=== PATIENT | female | born 1955 ===

== ENCOUNTER 2016-10-23 09:34 | Observation (INO) | payer BC, MEDICARE ==
[2016-10-23 09:35] VITALS: BMI 23.2
[2016-10-23] MEDS ORDERED: Sodium Chloride 0.9% 1,000 ML IV ONE (11:14)
[2016-10-23 11:57] LABS: EOS # 0.1 K/uL (0.0-0.7); EOS % 3.9 % (0.0-4.0); LYMPH # 0.9 K/uL (1.0-4.3); MONO # 0.3 K/uL (0.0-0.8)
[2016-10-23 12:03] LABS: BASO % 0.8 % (0.0-2.0); HEMATOCRIT 35.4 % (34.0-47.0); LYMPH % 27.7 % (20.0-40.0); MEAN CORPUSCULAR HEMOGLOBIN 26.4 pg (27.0-31.0); MEAN CORPUSCULAR HGB CONC 32.8 g/dL (33.0-37.0); MEAN PLATELET VOLUME 9.9 fL (7.2-11.7); MONO % 8.4 % (0.0-10.0); NRBC % 0.2 % (0.0-2.0); RED CELL DISTRIBUTION WIDTH 15.7 % (11.5-14.5)
[2016-10-23 12:05] LABS: MEAN CELL VOLUME 80.5 fL (81.0-99.0); WHITE BLOOD COUNT 3.2 K/uL (4.8-10.8)
--- NOTE | 2016-10-23 12:05 | C.PDOC ---
History Of Present Illness 61 year old female with a history of hernia, DM, endometrial CA presents to the ED with complaints of suprapubic radiating vaginal for the past 6 months. Patient was sent in by Dr. Bella for a hernia repair and notes she has had multiple hernia repairs in the past. Denies fever, chest pain, dysuria, nausea, vomiting, diarrhea, abdominal pain, vaginal discharge, or any other complaints at this time. Time Seen by Provider: 10/23/16 11:14 Chief Complaint (Nursing): Female Genitourinary History Per: Patient History/Exam Limitations: no limitations Onset/Duration Of Symptoms: Days Current Symptoms Are (Timing): Still Present Severity: Mild Past Medical History Reviewed: Historical Data, Nursing Documentation, Vital Signs Vital Signs: Last Vital Signs Temp 97.6 F 10/23/16 17:19 Pulse 58 L 10/23/16 17:19 Resp 18 10/23/16 17:19 BP 145/81 10/23/16 17:19 Pulse Ox 100 10/23/16 18:00 - Medical History PMH: Depression, Diabetes, Hepatitis, HTN Other PMH: cirrhosis Surgical History: Endoscopy (banding esophageal varices), Hernia Repair (2 umbilical hernias, 1 inguinal hernia), Other Surgeries: endometrial CA - [facility] Procedures DESTRUCT PERITONEAL TISS (09/28/14) OTH LYSIS-PERITONEAL ADHES (09/28/14) OTHER AND OPEN REPAIR OF DIRECT INGUINAL HERNIA (09/28/14) OTHER OPEN INCISIONAL HERNIA REPAIR WITH GRAFT OR PROSTHESIS (09/28/14) Family History: States: Unknown Family Hx - Social History Hx Alcohol Use: No Hx Substance Use: No - Immunization History Hx Tetanus Toxoid Vaccination: No Hx Influenza Vaccination: No Hx Pneumococcal Vaccination: No Review Of Systems Except As Marked, All Systems Reviewed And Found Negative. Constitutional: Negative for: Fever, Chills Cardiovascular: Negative for: Chest Pain Respiratory: Negative for: Shortness of Breath Gastrointestinal: Negative for: Nausea, Vomiting, Abdominal Pain Genitourinary: Positive for: Pelvic Pain. Negative for: Dysuria, Vaginal Discharge Physical Exam - Physical Exam Appears: Non-toxic, No Acute Distress Skin: Normal Color, Warm, Dry Head: Atraumatic, Normacephalic Eye(s): bilateral: Normal Inspection Nose: Normal Oral Mucosa: Moist Chest: Symmetrical, No Deformity Cardiovascular: Rhythm Regular Respiratory: Normal Breath Sounds, No Accessory Muscle Use, No Rales, No Rhonchi Gastrointestinal/Abdominal: Soft, No Distention, No Guarding, Hernia (+Tender suprapubic hernia), Other (+Perpendicular healed scar from the umbilicus to the mons pubis.) Extremity: Normal ROM Neurological/Psych: Oriented x3, Normal Speech, Normal Cognition ED Course And Treatment - Laboratory Results Result Diagrams: 10/23/16 11:38 10/23/16 11:38 ECG: Interpreted By Me, Viewed By Me ECG Rhythm: Sinus Bradycardia Rate From EC (BPM) O2 Sat by Pulse Oximetry: 100 (on room air) Pulse Ox Interpretation: Normal - CT Scan/US CT ABD & Pelvis w/contrast Other Rad Studies (CT/US): Read By Radiologist, Radiology Report Reviewed CT/US Interpretation: Creator : Kathie Maddox MD. Dictator : Kathie Maddox MD. Card Room Manager : Transition Advisor : Kathie Maddox MD. Approver2 : Report Date : 10/23/2016 16:46:13. My Comment : . PROCEDURE: CT Abdomen and Pelvis with oral and IV contrast. HISTORY: abd pain. COMPARISON: None available. TECHNIQUE: Contiguous axial images of the abdomen and pelvis. Oral and IV contrast was administered. Coronal and Sagittal reformats generated. This CT exam was performed using 1 or more of the falling dose reduction techniques: Automated exposure control, adjustment of the MAA and /or kV according to patient size, and/or use of iterative reconstruction technique. Contrast dose: 100 mL Omnipaque 240. Radiation dose: Total exam DLP = 350.23 mGy-cm. FINDINGS: LOWER THORAX: No visible consolidation, pleural effusion, or pneumothorax. Right pleural plaque. Small hiatal hernia. Evidence of gastroesophageal reflux. LIVER: Nodular hepatic contour. Hypo dense appearance of the liver compatible with hepatic steatosis. GALLBLADDER AND BILE DUCTS: Gallstones. PANCREAS: Unremarkable. SPLEEN: Splenomegaly. Heterogeneous splenic parenchyma with 1.1 cm hypodense lesion. ADRENALS: Unremarkable. KIDNEYS AND URETERS: The kidneys enhance symmetrically. No hydronephrosis or obstructing renal calculus. BLADDER: The urinary bladder appears unremarkable. REPRODUCTIVE: Uterus is absent, presumably due to hysterectomy. APPENDIX: The appendix appears within normal limits of caliber. BOWEL: The stomach is nondistended. The bowel loops appear within normal limits of caliber without evidence of intestinal obstruction. PERITONEUM: Small pelvic ascites. No definite free air. LYMPH NODES: No bulky lymphadenopathy identified. VASCULATURE: No aortic aneurysm. BONES: Degenerative changes. Scoliosis. OTHER FINDINGS: Discrete fluid collections measuring approximately 4.2 x 5.7 cm and 4.4 x 5.4 cm identified within the anterior pelvis at approximately the level of the pubic symphysis extending inferiorly. This finding appears anterior to the rectus ; correlate with surgical history. . IMPRESSION: Discrete fluid collections measuring approximately 4.2 x 5.7 cm and 4.4 x 5.4 cm identified within the anterior pelvis at approximately the level of the pubic symphysis extending inferiorly. This finding appears anterior to the rectus ; correlate for surgical history. Correlate clinically. Cannot exclude abscess. Cirrhotic appearing liver with nodular hepatic contour and heterogeneous hepatic parenchyma. Small perihepatic ascites. Splenomegaly. Heterogeneous splenic parenchyma with 1.1 cm hypodense lesion. Cholelithiasis. Small pelvic free fluid. 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 Additional findings as above. Progress Note: CT ABD & Pelvis w/contrast, EKG, Blood work, and Urinalysis ordered and reviewed. Patient treated with IV fluids. Patient was seen by Dr. Bella in the ED. Case discussed with Dr. Yen who agreed with plan and admission. Disposition - Disposition Disposition: HOSPITALIZED Disposition Time: 17:00 Condition: STABLE - Clinical Impression Clinical Impression: UTI (urinary tract infection), Inguinal hernia - PA / DIRECTOR BEHAVIORAL HEALTH / Resident Statement MD/DO has reviewed & agrees with the documentation as recorded. - Scribe Statement The provider has reviewed the documentation as recorded by the Scribe Keysha Babin. All medical record entries made by the Sangibe were at my direction and personally dictated by me. I have reviewed the chart and agree that the record accurately reflects my personal performance of the history, physical exam, medical decision making, and the department course for this patient. I have also personally directed, reviewed, and agree with the discharge instructions and disposition.
[2016-10-23] MEDS ORDERED: Iohexol 240 (50 ml) PO STA (12:06)
[2016-10-23 12:10] LABS: CHLORIDE 94 mmol/L (98-107); SODIUM 135 mmol/L (132-148)
[2016-10-23 12:12] LABS: GFR AFRICAN-AMERICAN > 60
[2016-10-23 12:13] LABS: ALB/GLOB RATIO 1.2 (1.0-2.1); ALKALINE PHOSPHATASE 101 U/L (38-126); ALT/SGPT 17 U/L (9-52); AST/SGOT 30 U/L (14-36); BILIRUBIN,TOTAL 2.1 mg/dL (0.2-1.3); BLOOD UREA NITROGEN 8 mg/dL (7-17); CALCIUM 8.8 mg/dl (8.6-10.4); CARBON DIOXIDE 28 mmol/L (22-30); GLUCOSE,RANDOM 246 mg/dL (65-105); TOTAL PROTEIN 7.1 g/dL (6.3-8.3)
[2016-10-23] MEDS ORDERED: Iohexol 240 (50 ml) ONE (12:14)
[2016-10-23 12:51] LABS: RBC URINE 4 /hpf (0-3); URINE BACTERIA RARE (<OCC); URINE BILIRUBIN NEGATIVE (NEGATIVE); URINE BLOOD 1+ (NEGATIVE); URINE COLOR Yellow (YELLOW); URINE GLUCOSE (UA) NORMAL (Normal); URINE KETONE NEGATIVE (NEGATIVE); URINE LEUKOCYTE ESTERASE 3+ Leu/uL (Negative); URINE PROTEIN NEGATIVE (NEGATIVE); URINE UROBILINOGEN NORMAL mg/dL (0.2-1.0); WBC URINE 26 /hpf (0-5)
[2016-10-23 14:29] LABS: INR 1.1
--- NOTE | 2016-10-23 14:57 | CP.PCM.HP ---
History of Present Illness - History of Present Illness History of Present Illness: This is a 61 y/o F w/ PMHx of umbilical hernia, inguinal hernia, type 2 DM, HTN , cirrhosis, endometrial CA, and Hep C, s/p Harvoni therapy with negative titers , that was sent to the ED to be admitted for surgical repair by Dr Bella. Patient complains of pain 4-5/10 in the suprapubic and vaginal areas that is exacerbated with increased intra-abdominal pressure. Patient reports hernia has been present for 6 months. Patient reports this is her second inguinal hernia with the first being surgically repaired in 2014. She states that this hernia appears larger than the previous one. Pt denies any fevers, chills, chest pain, palpitations, nausea, vomiting, diarrhea or constipation. PMHx - 2 umbilical hernias, 1 inguinal hernia, type 2 DM, HTN, cirrhosis, Hep C (currently negative titers), endometrial CA PSHx - 2 umbilical hernias, 1 inguinal hernia, endometrial CA, 3x C-sections Meds - Metformin 500 BID, Propanolol 10mg TID, Lasix 40 mg QD Social - Denies any drug, alcohol, tobacco use Family - Father and Mother type 2 DM SH - Denies tobacco, Etoh or drug use Present on Admission - Present on Admission Any Indicators Present on Admission: No Review of Systems - Constitutional Constitutional: absent: Chills, Fever - EENT Eyes: absent: Blurred Vision, Pain - Cardiovascular Cardiovascular: absent: Chest Pain, Palpitations - Respiratory Respiratory: absent: Cough, Dyspnea - Gastrointestinal Gastrointestinal: absent: Constipation, Diarrhea, Nausea, Vomiting - Genitourinary Genitourinary: absent: Difficulty Urinating - Musculoskeletal Musculoskeletal: absent: Muscle Weakness, Stiffness - Integumentary Integumentary: absent: Pruritus, Rash - Neurological Neurological: absent: Numbness, Tingling Past Patient History - Past Medical History & Family History Past Medical History?: Yes - Past Social History Smoking Status: Never Smoked - CARDIAC Hx Hypertension: Yes - PULMONARY Hx Respiratory Disorders: No - NEUROLOGICAL Hx Neurological Disorder: No - HEENT Hx HEENT Problems: Yes Other/Comment: Difficulty hearing - RENAL Hx Chronic Kidney Disease: No - ENDOCRINE/METABOLIC Hx Diabetes Mellitus Type 2: Yes - HEMATOLOGICAL/ONCOLOGICAL Hx Blood Disorders: Yes Hx Blood Transfusions: Yes Hx Blood Transfusion Reaction: No Hx Cancer: Yes (Endometrial cancer 2006) Hx Hepatitis C: Yes (2004) - INTEGUMENTARY Hx Dermatological Problems: No - MUSCULOSKELETAL/RHEUMATOLOGICAL Hx Musculoskeletal Disorders: Yes Hx Back Pain: Yes Hx Falls: Yes (4 times in the last year) - GASTROINTESTINAL Hx Gastrointestinal Disorders: Yes (esophageal varices banding) Hx Esophageal Varices: Yes Other/Comment: liver disease due to hep C - GENITOURINARY/GYNECOLOGICAL Hx Genitourinary Disorders: Yes (hx endometrial cancer) Other/Comment: states urine smells bad - PSYCHIATRIC Hx Depression: Yes Hx Substance Use: No - SURGICAL HISTORY Hx Surgeries: Yes Hx Hysterectomy: Yes (2006) - ANESTHESIA Hx Anesthesia: Yes Hx Anesthesia Reactions: No Meds Allergies/Adverse Reactions: Allergies Allergy/AdvReac Type Severity Reaction Status Date / Time No Known Allergies Allergy Verified 10/23/16 10:06 Physical Exam - Constitutional Appears: Non-toxic, No Acute Distress - Head Exam Head Exam: ATRAUMATIC, NORMOCEPHALIC - ENT Exam ENT Exam: Mucous Membranes Moist - Respiratory Exam Respiratory Exam: Clear to Auscultation Bilateral, NORMAL BREATHING PATTERN - Cardiovascular Exam Cardiovascular Exam: +S1, +S2 - GI/Abdominal Exam GI & Abdominal Exam: Hernia, Normal Bowel Sounds, Soft, Tenderness (Over hernia) . absent: Distended, Hyperactive Bowel Sounds Additional comments: Suprapubic hernia with erythematous overlying skin changes. Tender to palpation , non-reducible (pt unable to tolerate much pressure due to pain) - Extremities Exam Extremities exam: Positive for: normal inspection - Back Exam Back exam: NORMAL INSPECTION - Neurological Exam Neurological exam: Alert, Oriented x3 - Skin Skin Exam: Dry, Warm Results - Vital Signs Recent Vital Signs: Last Vital Signs Temp 97.8 F 10/23/16 10:09 Pulse 60 10/23/16 10:09 Resp 20 10/23/16 10:09 BP 143/62 10/23/16 10:09 Pulse Ox 100 10/23/16 14:41 - Labs Result Diagrams: 10/23/16 11:38 10/23/16 11:38 Labs: Laboratory Results - last 24 hr 10/23/16 10/23/16 12:43 14:18 PT 12.4 H INR 1.1 APTT 31 Urine Color Yellow Urine Clarity Hazy Urine pH 7.0 Ur Specific [place] 1.008 Urine Protein Negative Urine Glucose (UA) Normal Urine Ketones Negative Urine Blood 1+ H Urine Nitrate Negative Urine Bilirubin Negative Urine Urobilinogen Normal Ur Leukocyte Esterase 3+ H Urine WBC (Auto) 26 H Urine RBC (Auto) 4 H Ur Squamous Epith Cells 6 H Urine Bacteria Rare Assessment & Plan - Assessment and Plan (Free Text) Assessment: Suprapubic hernia - Sent in by Dr Bella for surgical repair on 10/24/16, needs medical clearance for procedure - Pain to palpation, non-reducible. No GI changes - NPO at midnight except meds - Hold DVT ppx for procedure - EKG, CXR, labs including coags - CT abdomen and pelvis - f/u results HTN - restart home propranolol 10mg TID - Monitor DM - Holding Metformin - MIHAELA - Accuchecks Hx of Hep C - s/p Harvoni treatment with negative titers - T bili at 2.4 PPX - Pepcid - SCDs, VTE pharmacotherapy contraindicated for surgery
--- NOTE | 2016-10-23 15:04 | RAD ---
Chest, one view Indication: Preop Comparison: Chest x-ray performed 10/01/14 Findings: The cardiomediastinal silhouette appears within normal limits of size. No focal consolidation, significant pleural effusion, or definite pneumothorax evident. Please note that chest x-ray has limited sensitivity for the detection of pulmonary masses. Degenerative changes of the spine. Impression: No focal consolidation, significant pleural effusion, or definite pneumothorax evident.
[2016-10-23] MEDS ORDERED: Iodixanol 320 MG/ML 100 ML BOTTLE IV ONE (15:08)
--- NOTE | 2016-10-23 16:50 | CT ---
PROCEDURE: CT Abdomen and Pelvis with oral and IV contrast. HISTORY: abd pain COMPARISON: None available. TECHNIQUE: Contiguous axial images of the abdomen and pelvis. Oral and IV contrast was administered. Coronal and Sagittal reformats generated. This CT exam was performed using 1 or more of the falling dose reduction techniques: Automated exposure control, adjustment of the MAA and/or kV according to patient size, and/or use of iterative reconstruction technique Contrast dose: 100 mL Omnipaque 240 Radiation dose: Total exam DLP = 350.23 mGy-cm. FINDINGS: LOWER THORAX: No visible consolidation, pleural effusion, or pneumothorax. Right pleural plaque. Small hiatal hernia. Evidence of gastroesophageal reflux. LIVER: Nodular hepatic contour. Hypo dense appearance of the liver compatible with hepatic steatosis. GALLBLADDER AND BILE DUCTS: Gallstones. PANCREAS: Unremarkable. SPLEEN: Splenomegaly. Heterogeneous splenic parenchyma with 1.1 cm hypodense lesion. ADRENALS: Unremarkable. KIDNEYS AND URETERS: The kidneys enhance symmetrically. No hydronephrosis or obstructing renal calculus. BLADDER: The urinary bladder appears unremarkable. REPRODUCTIVE: Uterus is absent, presumably due to hysterectomy. APPENDIX: The appendix appears within normal limits of caliber. BOWEL: The stomach is nondistended. The bowel loops appear within normal limits of caliber without evidence of intestinal obstruction. PERITONEUM: Small pelvic ascites. No definite free air. LYMPH NODES: No bulky lymphadenopathy identified. VASCULATURE: No aortic aneurysm. BONES: Degenerative changes. Scoliosis. OTHER FINDINGS: Discrete fluid collections measuring approximately 4.2 x 5.7 cm and 4.4 x 5.4 cm identified within the anterior pelvis at approximately the level of the pubic symphysis extending inferiorly. This finding appears anterior to the rectus ; correlate with surgical history. . IMPRESSION: Discrete fluid collections measuring approximately 4.2 x 5.7 cm and 4.4 x 5.4 cm identified within the anterior pelvis at approximately the level of the pubic symphysis extending inferiorly. This finding appears anterior to the rectus ; correlate for surgical history. Correlate clinically. Cannot exclude abscess. Cirrhotic appearing liver with nodular hepatic contour and heterogeneous hepatic parenchyma. Small perihepatic ascites. Splenomegaly. Heterogeneous splenic parenchyma with 1.1 cm hypodense lesion. Cholelithiasis. Small pelvic free fluid. 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 Additional findings as above.
[2016-10-23] MEDS: (Novolog) Insulin Aspart, Recombinant 100 u/ml 10 ml vial SC SCH (22:23)
[2016-10-24] MEDS: (Novolog) Insulin Aspart, Recombinant 100 u/ml 10 ml vial SC SCH ×4 (07:30→21:39)
[2016-10-24 11:11] LABS: HEMATOCRIT 36.9 % (34.0-47.0); MEAN CELL VOLUME 81.7 fL (81.0-99.0); MEAN CORPUSCULAR HEMOGLOBIN 26.7 pg (27.0-31.0); MEAN CORPUSCULAR HGB CONC 32.6 g/dL (33.0-37.0); MEAN PLATELET VOLUME 9.2 fL (7.2-11.7); RED CELL DISTRIBUTION WIDTH 15.5 % (11.5-14.5); WHITE BLOOD COUNT 3.7 K/uL (4.8-10.8)
[2016-10-24] MEDS ORDERED: ceFAZolin IV 1 gm in Dextrose 50 ML IVPB ONE (12:42)
[2016-10-24] MEDS ORDERED: Bupivacaine HCl 0.25% PF (10 ml) Inj ONE (12:51)
[2016-10-24] MEDS ORDERED: Lidocaine 1% Inj (20ml) ONE (12:52)
[2016-10-24] MEDS ORDERED: Midazolam 2 MG/2 ML VIAL ONE (13:22)
[2016-10-24] MEDS ORDERED: Propofol 10 mg/ml Inj (20 ML) ONE (13:22)
--- NOTE | 2016-10-24 13:46 | CP.PCM.PN ---
<Tanner Moeller - Last Filed: 10/24/16 14:23> Subjective - Date & Time of Evaluation Date of Evaluation: 10/24/16 Time of Evaluation: 13:41 - Subjective Subjective: PGY-[address] Yen's service Pt seen and examined at bedside. Pt has no complaints. Denied any events overnight. Pt denies any fevers, chills, chest pain, sob, nausea or vomiting Objective - Vital Signs/Intake and Output Vital Signs (last 24 hours): Temp Pulse Resp BP Pulse Ox 97.4 F L 55 L 20 125/81 96 10/24/16 08:00 10/24/16 11:17 10/24/16 08:00 10/24/16 11:17 10/24/16 08:00 - Medications Medications: Current Medications Famotidine (Pepcid) 20 mg PO BID [facility] Last Admin: 10/24/16 10:35 Dose: Not Given Insulin Aspart (Novolog) 0 unit SC ACHS [facility] PRN Reason: Protocol Last Admin: 10/24/16 11:59 Dose: Not Given Pneumococcal Polyvalent Vaccine (Pneumovax 23 Vaccine) 0.5 ml IM .ONCE ONE Stop: 10/25/16 10:01 Propranolol HCl (Inderal) 10 mg PO TID [facility] Last Admin: 10/24/16 10:35 Dose: Not Given - Labs Labs: 10/24/16 11:06 PT 12.4 SECONDS (9.7-12.2) H 10/23/16 14:18 INR 1.1 10/23/16 14:18 APTT 31 SECONDS (21-34) 10/23/16 14:18 - Constitutional Appears: Non-toxic, No Acute Distress - Head Exam Head Exam: ATRAUMATIC, NORMOCEPHALIC - Eye Exam Eye Exam: Normal appearance - ENT Exam ENT Exam: Mucous Membranes Moist - Respiratory Exam Respiratory Exam: Clear to Ausculation Bilateral, NORMAL BREATHING PATTERN - Cardiovascular Exam Cardiovascular Exam: +S1, +S2 - GI/Abdominal Exam GI & Abdominal Exam: Soft, Hernia, Normal Bowel Sounds - Neurological Exam Neurological Exam: Alert, Awake - Skin Skin Exam: Dry, Warm Assessment and Plan - Assessment and Plan (Free Text) Assessment: Suprapubic hernia - For OR today with Dr Bella, has been NPO since midnight - Pain to palpation, non-reducible. No GI changes - Hold DVT ppx for procedure - EKG - NSR at 55 bpm, normal ecg - CXR - normal cxr - Labs showed thrombocytopenia at 68 - CT abdomen and pelvis - Discrete fluid collections measuring approximately 4.2 x 5.7 cm and 4.4 x 5.4 cm identified within the anterior pelvis at approximately the level of the pubic symphysis extending inferiorly. This finding appears anterior to the rectus ; correlate for surgical history. Correlate clinically. Cannot exclude abscess. Cirrhotic appearing liver with nodular hepatic contour and heterogeneous hepatic parenchyma. Small perihepatic ascites. Splenomegaly. Heterogeneous splenic parenchyma with 1.1 cm hypodense lesion. Cholelithiasis. Small pelvic free fluid. 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 Thrombocytopenia - Likely due to splenic sequestration with hx of hep C - Will have platelets on hold for procedure - Monitor and transfuse if necessary HTN - restart home propranolol 10mg TID - Monitor DM - Holding Metformin - MIHAELA - Accuchecks Hx of Hep C - s/p Harvoni treatment with negative titers - T bili at 2.4 PPX - Pepcid - SCDs, VTE pharmacotherapy contraindicated for surgery <Justo Yen Jr. - Last Filed: 11/03/16 16:37> Objective - Vital Signs/Intake and Output Vital Signs (last 24 hours): Temp Pulse Resp BP Pulse Ox 98.1 F 82 20 169/75 H 96 10/25/16 16:00 10/25/16 16:00 10/25/16 16:00 10/25/16 16:00 10/25/16 16:00 - Labs Labs: 10/25/16 10:38 10/25/16 10:38 PT 12.4 SECONDS (9.7-12.2) H 10/23/16 14:18 INR 1.1 10/23/16 14:18 APTT 31 SECONDS (21-34) 10/23/16 14:18 Attending/Attestation - Attestation I have personally seen and examined this patient.: Yes I have fully participated in the care of the patient.: Yes I have reviewed all pertinent clinical information, including history, physical exam and plan: Yes Notes (Text): 11/03/16 16:36 Patient seen and examined. Reviewed resident note and plan of care. Agree with findings and plan.
[2016-10-24] MEDS ORDERED: Lactated Ringer's 1,000 ML IV ONE (14:22)
[2016-10-24] MEDS ORDERED: Sodium Chloride 0.9% 500 ML IV ONE (14:40)
[2016-10-24] MEDS ORDERED: Neostigmine Methylsulfate 3mg/3ml Syringe IV ONE (15:03)
[2016-10-24] MEDS ORDERED: HYDROmorphone 0.5 mg/0.5 ml ISec IVP PRN (15:12)
[2016-10-24] MEDS ORDERED: Oxycodone/Acetaminophen 5/325 mg Tab PO PRN (15:16)
--- NOTE | 2016-10-24 15:55 | OP ---
PROCEDURE DATE: 10/24/2016 PREOPERATIVE DIAGNOSIS: Bilateral inguinal hernia. POSTOPERATIVE DIAGNOSIS: Recurrent right inguinal hernia with extensive hernia sac and lipoma. SURGEON: Jesus Bella MD ANESTHESIA: General. BLOOD LOSS: 50 mL. POSTOPERATIVE CONDITION: Stable. INDICATION FOR SURGERY: This is a 61-year-old female with a history of cirrhosis and ascites, who pr esents with a large fluid-filled mass in her groin. She had a history of a right inguinal hernia rep air and the mass, it was in the left side of her groin consistent with a new left inguinal hernia. A CT preoperatively was nondiagnostic of actually what side the hernia was on. PROCEDURE: The patient was taken to the operating room. General anesthesia was administered, as wer e 10 units of platelets. An incision was made in the groin, transverse and midline directly over the hernia sac. The hernia sac was dissected free down to its base and was found to be coming from a re current site in the right inguinal on the right side. A lipoma associated with this was excised and removed. The hernia sac was ligated at its base and a bleeding epigastric blood vessel was noted and repaired with Prolene. The wound was irrigated with copious amounts of saline solution and in order to close the space, an adjacent tissue transfer was performed using multiple layers of Monocryl , subcuticular Monocryl, and clips. Prior to closure, the external ring was ligated with a running 0 Prolene suture. The patient tolerated the procedure well, returned to recovery room in stable condi tion. Jesus Bella MD cc: [id number] TT: 10/24/2016 15:55:17 sn
[2016-10-24 21:54] VITALS: RESP 20
[2016-10-25] MEDS: (Novolog) Insulin Aspart, Recombinant 100 u/ml 10 ml vial SC SCH ×2 (08:28→12:30)
[2016-10-25 08:46] VITALS: O2SAT 96
[2016-10-25] MEDS ORDERED: Pneumococcal 23-Valent Vaccine IM ONE (10:00)
[2016-10-25 10:42] LABS: BASO % 1.2 % (0.0-2.0); EOS # 0.2 K/uL (0.0-0.7); EOS % 4.7 % (0.0-4.0); HEMATOCRIT 32.3 % (34.0-47.0); LYMPH # 0.7 K/uL (1.0-4.3); LYMPH % 21.1 % (20.0-40.0); MEAN CORPUSCULAR HEMOGLOBIN 26.4 pg (27.0-31.0); MEAN CORPUSCULAR HGB CONC 32.6 g/dL (33.0-37.0); MEAN PLATELET VOLUME 9.6 fL (7.2-11.7); MONO # 0.4 K/uL (0.0-0.8); MONO % 10.5 % (0.0-10.0); NRBC % 0.1 % (0.0-2.0); RED CELL DISTRIBUTION WIDTH 15.6 % (11.5-14.5); WHITE BLOOD COUNT 3.5 K/uL (4.8-10.8)
[2016-10-25 10:53] LABS: CHLORIDE 98 mmol/L (98-107); SODIUM 135 mmol/L (132-148)
[2016-10-25 10:54] LABS: POTASSIUM 3.4 mmol/L (3.6-5.2)
[2016-10-25 10:56] LABS: ALB/GLOB RATIO 1.1 (1.0-2.1); ALKALINE PHOSPHATASE 65 U/L (38-126); AST/SGOT 25 U/L (14-36); BILIRUBIN,TOTAL 1.8 mg/dL (0.2-1.3); BLOOD UREA NITROGEN 11 mg/dL (7-17); CARBON DIOXIDE 26 mmol/L (22-30); GFR AFRICAN-AMERICAN > 60; GLUCOSE,RANDOM 125 mg/dL (65-105); TOTAL PROTEIN 5.9 g/dL (6.3-8.3)
[2016-10-25 10:57] LABS: ALT/SGPT 20 U/L (9-52); CALCIUM 8.2 mg/dl (8.6-10.4)
--- NOTE | 2016-10-25 15:10 | CP.PCM.PN ---
Subjective - Date & Time of Evaluation Date of Evaluation: 10/25/16 Time of Evaluation: 15:07 - Subjective Subjective: PGY-[address] Yen's service Pt seen and examined at bedside. Pt observed to be up and walking with no difficulty. Pt reports lower abdominal pain at incision site but it is well tolerated. She reports flatus but no BM yet. Denies fevers, chills, chest pain, sob, nausea or vomiting. Objective - Vital Signs/Intake and Output Vital Signs (last 24 hours): Temp Pulse Resp BP Pulse Ox 97.7 F 60 20 99/68 L 96 10/25/16 08:00 10/25/16 08:00 10/25/16 08:00 10/25/16 08:00 10/25/16 08:00 Intake and Output: 10/25/16 10/25/16 06:59 18:59 Intake Total 240 Balance 240 - Medications Medications: Current Medications Famotidine (Pepcid) 20 mg PO BID [facility] Last Admin: 10/25/16 10:07 Dose: 20 mg Insulin Aspart (Novolog) 0 unit SC ACHS [facility] PRN Reason: Protocol Last Admin: 10/25/16 12:30 Dose: Not Given Oxycodone/Acetaminophen (Percocet 5/325 Mg Tab) 1 tab PO Q4H PRN PRN Reason: pain Stop: 10/27/16 15:17 Last Admin: 10/25/16 06:52 Dose: 1 tab Propranolol HCl (Inderal) 10 mg PO TID [facility] Last Admin: 10/25/16 10:06 Dose: Not Given - Labs Labs: 10/25/16 10:38 10/25/16 10:38 PT 12.4 SECONDS (9.7-12.2) H 10/23/16 14:18 INR 1.1 10/23/16 14:18 APTT 31 SECONDS (21-34) 10/23/16 14:18 - Constitutional Appears: Non-toxic, No Acute Distress - Head Exam Head Exam: ATRAUMATIC, NORMOCEPHALIC - Respiratory Exam Respiratory Exam: Clear to Ausculation Bilateral, NORMAL BREATHING PATTERN - Cardiovascular Exam Cardiovascular Exam: +S1, +S2 - GI/Abdominal Exam GI & Abdominal Exam: Soft, Tenderness, Normal Bowel Sounds Additional comments: Bandages in place. Some strike through bleeding but nothing severe. - Neurological Exam Neurological Exam: Alert, Awake - Skin Skin Exam: Dry, Warm
--- NOTE | 2016-10-25 15:47 | CP.PCM.DIS ---
<Tanner Moeller - Last Filed: 10/25/16 15:35> Provider - Provider Date of Admission: 10/23/16 12:03 Attending physician: Justo Yen Jr, MD Consults: [facility] - [facility] Time Spent in preparation of Discharge (in minutes): 31 Hospital Course - Lab Results Lab Results: Most Recent Lab Values WBC 3.5 K/uL (4.8-10.8) L 10/25/16 10:38 RBC 3.98 Mil/uL (3.80-5.20) 10/25/16 10:38 Hgb 10.5 g/dL (11.0-16.0) L 10/25/16 10:38 Hct 32.3 % (34.0-47.0) L 10/25/16 10:38 MCV 81.0 fL (81.0-99.0) 10/25/16 10:38 MCH 26.4 pg (27.0-31.0) L 10/25/16 10:38 MCHC 32.6 g/dL (33.0-37.0) L 10/25/16 10:38 RDW 15.6 % (11.5-14.5) H 10/25/16 10:38 Plt Count 65 K/uL (130-400) L 10/25/16 10:38 MPV 9.6 fL (7.2-11.7) 10/25/16 10:38 Neut % (Auto) 62.5 % (50.0-75.0) 10/25/16 10:38 Lymph % (Auto) 21.1 % (20.0-40.0) 10/25/16 10:38 [place] % (Auto) 10.5 % (0.0-10.0) H 10/25/16 10:38 Eos % (Auto) 4.7 % (0.0-4.0) H 10/25/16 10:38 Baso % (Auto) 1.2 % (0.0-2.0) 10/25/16 10:38 Neut # 2.2 K/uL (1.8-7.0) 10/25/16 10:38 Lymph # 0.7 K/uL (1.0-4.3) L 10/25/16 10:38 [place] # 0.4 K/uL (0.0-0.8) 10/25/16 10:38 Eos # 0.2 K/uL (0.0-0.7) 10/25/16 10:38 Baso # 0.0 K/uL (0.0-0.2) 10/25/16 10:38 Differential Comment 10/25/16 10:38 PT 12.4 SECONDS (9.7-12.2) H 10/23/16 14:18 INR 1.1 10/23/16 14:18 APTT 31 SECONDS (21-34) 10/23/16 14:18 Sodium 135 mmol/L (132-148) 10/25/16 10:38 Potassium 3.4 mmol/L (3.6-5.2) L 10/25/16 10:38 Chloride 98 mmol/L (98-107) 10/25/16 10:38 Carbon Dioxide 26 mmol/L (22-30) 10/25/16 10:38 Anion Gap 14 (10-20) 10/25/16 10:38 BUN 11 mg/dL (7-17) 10/25/16 10:38 Creatinine 0.7 MG/DL (0.7-1.2) 10/25/16 10:38 Est GFR ( Amer) > 60 10/25/16 10:38 Est GFR (Non-Af Amer) > 60 10/25/16 10:38 POC Glucose (mg/dL) 170 mg/dL (65-110) H 10/25/16 07:18 Random Glucose 125 mg/dL (65-105) H 10/25/16 10:38 Calcium 8.2 mg/dl (8.6-10.4) L 10/25/16 10:38 Total Bilirubin 1.8 mg/dL (0.2-1.3) H 10/25/16 10:38 AST 25 U/L (14-36) 10/25/16 10:38 ALT 20 U/L (9-52) 10/25/16 10:38 Alkaline Phosphatase 65 U/L (38-126) 10/25/16 10:38 Total Protein 5.9 g/dL (6.3-8.3) L 10/25/16 10:38 Albumin 3.0 g/dL (3.5-5.0) L D 10/25/16 10:38 Globulin 2.8 gm/dL (2.2-3.9) 10/25/16 10:38 Albumin/Globulin Ratio 1.1 (1.0-2.1) 10/25/16 10:38 Urine Color Yellow (YELLOW) 10/23/16 12:43 Urine Clarity Hazy (Clear) 10/23/16 12:43 Urine pH 7.0 (5.0-8.0) 10/23/16 12:43 Ur Specific [place] 1.008 (1.003-1.030) 10/23/16 12:43 Urine Protein Negative mg/dL (NEGATIVE) 10/23/16 12:43 Urine Glucose (UA) Normal mg/dL (Normal) 10/23/16 12:43 Urine Ketones Negative mg/dL (NEGATIVE) 10/23/16 12:43 Urine Blood 1+ (NEGATIVE) H 10/23/16 12:43 Urine Nitrate Negative (NEGATIVE) 10/23/16 12:43 Urine Bilirubin Negative (NEGATIVE) 10/23/16 12:43 Urine Urobilinogen Normal mg/dL (0.2-1.0) 10/23/16 12:43 Ur Leukocyte Esterase 3+ Glen/uL (Negative) H 10/23/16 12:43 Urine WBC (Auto) 26 /hpf (0-5) H 10/23/16 12:43 Urine RBC (Auto) 4 /hpf (0-3) H 10/23/16 12:43 Ur Squamous Epith Cells 6 /hpf (0-5) H 10/23/16 12:43 Urine Bacteria Rare (<OCC) 10/23/16 12:43 Blood Type O POSITIVE 10/25/16 13:52 Antibody Screen Negative 10/25/16 13:52 - Hospital Course Hospital Course: On hospital admission This is a 61 y/o F w/ PMHx of umbilical hernia, inguinal hernia, type 2 DM, HTN , cirrhosis, endometrial CA, and Hep C, s/p Harvoni therapy with negative titers , that was sent to the ED to be admitted for surgical repair by Dr Bella. Patient complains of pain 4-5/10 in the suprapubic and vaginal areas that is exacerbated with increased intra-abdominal pressure. Patient reports hernia has been present for 6 months. Patient reports this is her second inguinal hernia with the first being surgically repaired in 2014. She states that this hernia appears larger than the previous one. Pt denies any fevers, chills, chest pain, palpitations, nausea, vomiting, diarrhea or constipation. On hospital course Pt was admitted for surgical repair of suprapubic hernia. EKG, CXR, labs including coag studies were ordered. A CT abdomen/pelvis was ordered which showed: Discrete fluid collections measuring approximately 4.2 x 5.7 cm and 4.4 x 5.4 cm identified within the anterior pelvis at approximately the level of the pubic symphysis extending inferiorly. This finding appears anterior to the rectus ; correlate for surgical history. Correlate clinically. Cannot exclude abscess. Cirrhotic appearing liver with nodular hepatic contour and heterogeneous hepatic parenchyma. Small perihepatic ascites. Splenomegaly. Heterogeneous splenic parenchyma with 1.1 cm hypodense lesion. Cholelithiasis. Small pelvic free fluid. 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 Labs showed that the patient had thrombocytopenia likely due to sequestration by the spleen. Surgery was made aware and asked that 10 units of platelets be ordered and to be kept on standby. The patient, being medically optimized for surgery, underwent surgical repair of the hernia and tolerated the procedure well. She was discharged home in stable condition with instructions to resume all home medications and to follow up with her primary care physician and with Dr Bella as he instructed. Medications Metformin 500mg BID Propranolol 10mg TID Lasix 40 mg Daily Omeprazole 40mg daily Diagnoses Inguinal hernia Hypertension Diabetes Mellitus This is a summary of hospital course, please see EMR for further details - Date & Time of H&P Date of H&P: 10/23/16 Time of H&P: 14:35 Discharge Exam - Head Exam Head Exam: ATRAUMATIC, NORMOCEPHALIC - Eye Exam Eye Exam: Normal appearance Pupil Exam: PERRL - ENT Exam ENT Exam: Mucous Membranes Moist - Respiratory Exam Respiratory Exam: Clear to PA & Lateral, UNREMARKABLE - Cardiovascular Exam Cardiovascular Exam: +S1, +S2 - GI/Abdominal Exam GI & Abdominal Exam: Normal Bowel Sounds, Soft, Tenderness (Over surgical site) - Neurological Exam Neurological exam: Alert, Oriented x3 - Skin Skin Exam: Dry, Warm Discharge Plan - Follow Up Plan Condition: GOOD Disposition: HOME/ ROUTINE Instructions: Inguinal Hernia (GEN), Incisional Hernia (DC) Additional Instructions: Pt needs to resume her home medications as prescribed. Pt should also follow up with her primary care physician and with Dr Bella as instructed by him. Referrals: Jesus Bella MD [Staff Provider] - <Jeanie Neal V - Last Filed: 10/25/16 19:23> Provider - Provider Date of Admission: 10/23/16 12:03 Attending physician: Justo Yen Jr, MD Hospital Course - Lab Results Lab Results: Most Recent Lab Values WBC 3.5 K/uL (4.8-10.8) L 10/25/16 10:38 RBC 3.98 Mil/uL (3.80-5.20) 10/25/16 10:38 Hgb 10.5 g/dL (11.0-16.0) L 10/25/16 10:38 Hct 32.3 % (34.0-47.0) L 10/25/16 10:38 MCV 81.0 fL (81.0-99.0) 10/25/16 10:38 MCH 26.4 pg (27.0-31.0) L 10/25/16 10:38 MCHC 32.6 g/dL (33.0-37.0) L 10/25/16 10:38 RDW 15.6 % (11.5-14.5) H 10/25/16 10:38 Plt Count 65 K/uL (130-400) L 10/25/16 10:38 MPV 9.6 fL (7.2-11.7) 10/25/16 10:38 Neut % (Auto) 62.5 % (50.0-75.0) 10/25/16 10:38 Lymph % (Auto) 21.1 % (20.0-40.0) 10/25/16 10:38 [place] % (Auto) 10.5 % (0.0-10.0) H 10/25/16 10:38 Eos % (Auto) 4.7 % (0.0-4.0) H 10/25/16 10:38 Baso % (Auto) 1.2 % (0.0-2.0) 10/25/16 10:38 Neut # 2.2 K/uL (1.8-7.0) 10/25/16 10:38 Lymph # 0.7 K/uL (1.0-4.3) L 10/25/16 10:38 [place] # 0.4 K/uL (0.0-0.8) 10/25/16 10:38 Eos # 0.2 K/uL (0.0-0.7) 10/25/16 10:38 Baso # 0.0 K/uL (0.0-0.2) 10/25/16 10:38 Differential Comment 10/25/16 10:38 PT 12.4 SECONDS (9.7-12.2) H 10/23/16 14:18 INR 1.1 10/23/16 14:18 APTT 31 SECONDS (21-34) 10/23/16 14:18 Sodium 135 mmol/L (132-148) 10/25/16 10:38 Potassium 3.4 mmol/L (3.6-5.2) L 10/25/16 10:38 Chloride 98 mmol/L (98-107) 10/25/16 10:38 Carbon Dioxide 26 mmol/L (22-30) 10/25/16 10:38 Anion Gap 14 (10-20) 10/25/16 10:38 BUN 11 mg/dL (7-17) 10/25/16 10:38 Creatinine 0.7 MG/DL (0.7-1.2) 10/25/16 10:38 Est GFR ( Amer) > 60 10/25/16 10:38 Est GFR (Non-Af Amer) > 60 10/25/16 10:38 POC Glucose (mg/dL) 133 mg/dL (65-110) H 10/25/16 11:26 Random Glucose 125 mg/dL (65-105) H 10/25/16 10:38 Calcium 8.2 mg/dl (8.6-10.4) L 10/25/16 10:38 Total Bilirubin 1.8 mg/dL (0.2-1.3) H 10/25/16 10:38 AST 25 U/L (14-36) 10/25/16 10:38 ALT 20 U/L (9-52) 10/25/16 10:38 Alkaline Phosphatase 65 U/L (38-126) 10/25/16 10:38 Total Protein 5.9 g/dL (6.3-8.3) L 10/25/16 10:38 Albumin 3.0 g/dL (3.5-5.0) L D 10/25/16 10:38 Globulin 2.8 gm/dL (2.2-3.9) 10/25/16 10:38 Albumin/Globulin Ratio 1.1 (1.0-2.1) 10/25/16 10:38 Urine Color Yellow (YELLOW) 10/23/16 12:43 Urine Clarity Hazy (Clear) 10/23/16 12:43 Urine pH 7.0 (5.0-8.0) 10/23/16 12:43 Ur Specific [place] 1.008 (1.003-1.030) 10/23/16 12:43 Urine Protein Negative mg/dL (NEGATIVE) 10/23/16 12:43 Urine Glucose (UA) Normal mg/dL (Normal) 10/23/16 12:43 Urine Ketones Negative mg/dL (NEGATIVE) 10/23/16 12:43 Urine Blood 1+ (NEGATIVE) H 10/23/16 12:43 Urine Nitrate Negative (NEGATIVE) 10/23/16 12:43 Urine Bilirubin Negative (NEGATIVE) 10/23/16 12:43 Urine Urobilinogen Normal mg/dL (0.2-1.0) 10/23/16 12:43 Ur Leukocyte Esterase 3+ Glen/uL (Negative) H 10/23/16 12:43 Urine WBC (Auto) 26 /hpf (0-5) H 10/23/16 12:43 Urine RBC (Auto) 4 /hpf (0-3) H 10/23/16 12:43 Ur Squamous Epith Cells 6 /hpf (0-5) H 10/23/16 12:43 Urine Bacteria Rare (<OCC) 10/23/16 12:43 Blood Type O POSITIVE 10/25/16 13:52 Antibody Screen Negative 10/25/16 13:52 Attending/Attestation - Attestation I have personally seen and examined this patient.: Yes I have fully participated in the care of the patient.: Yes I have reviewed all pertinent clinical information, including history, physical exam and plan: Yes Notes (Text): Hospitalist Covering Dr. Yen's service Patient seen, examined and case discussed with day-time resident. Patient reports she has flatus and having BM. Patient denies other acute complaints. Surgery (Dr. Peralta) placed discharge order today. Patient does not have signs of bleeding. Patient to resume home medications. Patient follow-up per discharge instructions with surgery and with primary care doctor post-hospitalization. This is a summary of patient's hospitalization. Please see EMR for further details. Assessment/Plan 1) Suprapubic hernia * Sent in by Dr Bella for surgical repair on 10/24/16, needs medical clearance for procedure; patient medically optimized per H&P * Chest xray (10/23/16): no focal consolidation, significant pleural effusion, or definite penumothorax evident * CT abdomen/Pelvis (10/23/16): discrete fluid collections measuring approximately 4.2 X 5.7 cm and 4.4X 5.4 cm identified with the anterior pelivs at approximately the level of the pubic symphysis extending inferiorly. Cirrhotic appearing liver with nodular hepatic contour and heterogenous hepatic parenchyma. Small perihepatic ascites. Splenomegaly. Heterogenous splenic parenchyma with 1.1 cm hypodenese lesion. Cholelithiasis. small pelvic free fluid. 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 * Per operative note: recurrent right inguinal hernia with extensive hernia sac and lipoma * Per surgery, patient is stable for discharge. Per surgery for discharge instructions regarding post-operative care and follow-up appointment * PRN: percocet 1 tab PO Q 4hour PRN pain 2) Hx of Hypertension * Propanolol 10mg PO TID 3) Diabetes mellitus type 2 * resume home dose Metfomin upon discharge * Novolog sliding scale subq * Accuechecks QAC ans HS 4) Hx of Hepatitis C * s/p Harvoni treatment with negative titers 5) Thrombocytopenia * monitor platelets * no adverse bleeding events noted during the day of discharge * influencing factors including cirrhosis, splenomegaly, hepatitis C * CT abdomen/Pelvis (10/23/16): discrete fluid collections measuring approximately 4.2 X 5.7 cm and 4.4X 5.4 cm identified with the anterior pelivs at approximately the level of the pubic symphysis extending inferiorly. Cirrhotic appearing liver with nodular hepatic contour and heterogenous hepatic parenchyma. Small perihepatic ascites. Splenomegaly. Heterogenous splenic parenchyma with 1.1 cm hypodenese lesion. Cholelithiasis. small pelvic free fluid. 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 6) Hypokalemia * repleted 7) Prophylactic measure * Pepcid 20mg PO bid for GI ppx * off VTE prior to post-operative
[2016-10-25] MEDS ORDERED: Potassium Chloride 20 mEq 100 ML IVPB ONE (16:00)
[2016-10-25 17:54] VITALS: BP 169/75; PULSE 82; TEMP 98.1
--- NOTE | 2016-10-25 19:09 | CARD ---
APPROVED REPORT EKG Measurement Heart [id number] <Conclusion> Sinus bradycardia Otherwise normal ECG
== END 2016-10-25 15:45 | disposition home or self-care (01) ==
LOC: C.ER 09:34 → C.9E 12:03 → C.3T 16:59
PROVIDERS: ADMIT Internal Medicine; ATTEND Internal Medicine
DX: K40.91 Unilateral inguinal hernia, without obstruction or gangrene, recurrent (principal); N39.0 Urinary tract infection, site not specified; K74.60 Unspecified cirrhosis of liver; R18.8 Other ascites; E11.9 Type 2 diabetes mellitus without complications; I10 Essential (primary) hypertension; Z85.42 Personal history of malignant neoplasm of other parts of uterus; D69.59 Other secondary thrombocytopenia; E87.6 Hypokalemia; Z83.3 Family history of diabetes mellitus
CPT/HCPCS: 36415; 36430; 49520; 71010; 74177; 80053; 81001; 82948; 85025; 85027; 85610; 85730; 86850; 86900; 86920; 88302; 93005; 97116; 97162; 99285; G0378; G8978; G8979; J0690; J1170; J2250; J2405; J2704; J2710; J3010; J7040; J7120; P9035; Q9966; Q9967